=== PATIENT | female | born 1945 | race Caucasian/White ===

== ENCOUNTER 2018-01-10 10:43 | Outpatient (CLI) | payer OTHER | END 2018-01-10 14:10 | disposition home or self-care (01) | LOC: SONOGRAMA 10:43 → MAMO-SONO 10:45 → SONOGRAMA 14:10 | DX: R10.30 Lower abdominal pain, unspecified (principal) ==

== ENCOUNTER 2018-01-18 07:32 | Outpatient (CLI) | payer OTHER | END 2018-01-18 15:00 | disposition home or self-care (01) | LOC: TOM 07:32 | DX: K57.30 Diverticulosis of large intestine without perforation or abscess without bleeding (principal); R10.32 Left lower quadrant pain | CPT/HCPCS: 74177; Q9965 ==

== ENCOUNTER 2019-04-24 09:10 | Outpatient (CLI) | payer OTHER | END 2019-04-24 09:11 | disposition home or self-care (01) | LOC: MAMO-SONO 09:10 | DX: Z12.31 Encounter for screening mammogram for malignant neoplasm of breast (principal); Z87.898 Personal history of other specified conditions; N64.4 Mastodynia ==

== ENCOUNTER 2021-02-22 11:12 | Outpatient (CLI) | payer OTHER | END 2021-02-26 15:07 | disposition home or self-care (01) | LOC: RAD 11:12 | PROVIDERS: ATTEND General Practice | DX: M25.552 Pain in left hip (principal); M81.0 Age-related osteoporosis without current pathological fracture ==

== ENCOUNTER 2021-05-11 13:07 | Outpatient (CLI) | payer OTHER | END 2021-05-11 13:12 | disposition home or self-care (01) | LOC: MAMO-SONO 13:07 | PROVIDERS: ATTEND General Practice | DX: N64.4 Mastodynia (principal); Z12.31 Encounter for screening mammogram for malignant neoplasm of breast ==

== ENCOUNTER 2023-10-26 09:59 | Outpatient (CLI) | payer OTHER | END 2023-10-26 10:08 | disposition home or self-care (01) | LOC: MAMO-SONO 09:59 | PROVIDERS: ATTEND Obstetrics & Gynecology | DX: N60.11 Diffuse cystic mastopathy of right breast (principal); N60.12 Diffuse cystic mastopathy of left breast ==

== ENCOUNTER 2023-10-31 06:58 | Outpatient (CLI) | payer OTHER | END 2023-10-31 07:30 | disposition home or self-care (01) | LOC: MRI 06:58 | PROVIDERS: ATTEND Obstetrics & Gynecology | DX: N95.9 Unspecified menopausal and perimenopausal disorder (principal); R10.2 Pelvic and perineal pain | CPT/HCPCS: 72197; 74183; Q9965 ==

== ENCOUNTER 2023-11-02 08:08 | Emergency (ER) | payer OTHER ==
[~2023-11-02] VITALS: Ht 162.6 cm; Wt 83.9 kg
[2023-11-02] MEDS ORDERED: GLUMETZA500 MG (08:19)
[2023-11-02] MEDS ORDERED: EZALLOR SPRINKLE5 MG PO (08:19)
[2023-11-02] MEDS ORDERED: COZAAR25 MG PO (08:20)
[2023-11-02] MEDS ORDERED: DEXAMETHASONE SODIUM PHOSPHATE 4 MG/ML VIAL IM STA (08:53)
[2023-11-02] MEDS ORDERED: KETOROLAC TROMETHAMINE 30 MG VIAL IM ONE (09:00)
[2023-11-02] MEDS ORDERED: ADVIL DUAL ACT1 EACH PO (11:52)
[2023-11-02] MEDS ORDERED: CYCLOBENZAPRINE10 MG PO (11:52)
== END 2023-11-02 12:00 | disposition home or self-care (01) ==
LOC: ER 08:08
DX: M54.30 Sciatica, unspecified side (principal); M54.50 Low back pain, unspecified; M79.605 Pain in left leg; I10 Essential (primary) hypertension; E11.9 Type 2 diabetes mellitus without complications; Z79.84 Long term (current) use of oral hypoglycemic drugs; Z91.018 Allergy to other foods
CPT/HCPCS: 96372; 99282; J1100; J1885

== ENCOUNTER 2023-11-15 09:06 | Outpatient (CLI) | payer OTHER ==
[~2023-11-15 09:06] MED LIST: ADVIL DUAL ACT1 EACH PO; COZAAR25 MG PO; CYCLOBENZAPRINE10 MG PO; EZALLOR SPRINKLE5 MG PO; GLUMETZA500 MG
== END 2023-11-15 09:12 | disposition home or self-care (01) ==
LOC: RAD 09:06
PROVIDERS: ATTEND Family Medicine
DX: M25.559 Pain in unspecified hip (principal)

== ENCOUNTER 2024-02-22 08:15 | Inpatient (IN) | payer OTHER ==
[~2024-02-22] VITALS: Ht 162.6 cm; Wt 81.6 kg
[~2024-02-22 08:15] MED LIST changes: +MORGIDOX100 MG PO; +NAPR500T14 PO; +VITAMIN C60 MG PO
[2024-02-22 09:57] LABS: HEMATOCRIT 34.5 % (36.0-45.00); HEMOGLOBIN 11.5 g/dL (12.0-15.00); MEAN CELL VOLUME 85.1 fL (80.00-100.00); MEAN CORPUSCULAR HEMOGLOBIN 28.4 pg (27.00-32.0); MEAN CORPUSCULAR HGB CONC 33.4 g/dl (32.0-36.0); PLATELET COUNT 280 K/uL (150-450); RED BLOOD COUNT 4.06 M/uL (4.00-6.00); RED CELL DISTRIBUTION WIDTH 14.4 % (11.5-14.5)
[2024-02-22 10:02] LABS: URINE APPEARANCE Clear; URINE BILIRRUBIN Negative (NEGATIVE); URINE BLOOD Negative; URINE COLOR Yellow; URINE GLUCOSE Negative (NEGATIVE); URINE LEUKOCYTE Trace; URINE NITRATE Negative; URINE PROTEIN Trace (NEGATIVE); URINE UROBILINOGEN 0.2 E.U./dl
[2024-02-22 10:08] LABS: URINE BACTERIA 11.3 uL (0.0-1933); URINE EPITHELIAL CELLS 2.1 uL (0.0-38.8); URINE RBC 34.3 uL (0.0-20.8); URINE WBC 22.3 uL (0.0-23.2)
[2024-02-22 10:29] LABS: INR 0.98; PARTIAL THROMBOPLASTIN TIME 25.8 SECONDS (22.0-34.0); PROTHROMBIN TIME 10.3 SECONDS (9.0-11.5)
[2024-02-22] MEDS ORDERED: ACID REDUCER20 M1 PO (10:32)
[2024-02-22] MEDS ORDERED: ALTOPREV40 MG PO (10:32)
[2024-02-22 10:58] LABS: ALBUMIN 3.7 gm/dL (3.4-5.0); BILIRUBIN TOTAL 0.57 mg/dL (0.3-1.2); CALCIUM 9.7 mg/dL (8.5-10.1); CREATININE SERUM 0.94 mg/dL (0.55-1.02); GFR 57.59; GLOBULINA 2.9 G/DL (2.4-3.5); POTASSIUM 4.25 mEq/L (3.5-5.1); TOTAL PROTEIN 6.6 gm/dL (6.4-8.2); TSH 1.32 uIU/mL (0.358-3.74)
[2024-02-29] MEDS ORDERED: POVIDONE-IODINE 118 ML BOTT TOP ONE (07:07)
[2024-02-29] MEDS ORDERED: CEFOXITIN SODIUM 2,000 MG VIAL IV ONE (07:07)
[2024-02-29] MEDS ORDERED: BACLOFEN20 MG (08:07)
[2024-02-29] MEDS ORDERED: ROSUVASTATIN CA10 MG (08:08)
[2024-02-29] MEDS ORDERED: OMEPRAZOLE20 MG (08:08)
[2024-02-29] MEDS ORDERED: FAMOTIDINE20 MG (08:08)
[2024-02-29] MEDS ORDERED: OMEGA-3 ACID ETH1 GM (08:08)
[2024-02-29] MEDS ORDERED: IBUPROFEN800 MG (08:08)
[2024-02-29] MEDS ORDERED: ALTOPREV40 MG (08:11)
[2024-02-29] MEDS ORDERED: THROMBIN,HU/FIBRINOGEN/CALCIUM 10 ML SYRINGE TOP ONE (09:19)
[2024-02-29] MEDS ORDERED: SIMETHICONE 125 MG CAPSULE PO SCH (10:06)
[2024-02-29] MEDS ORDERED: SUGAMMADEX SODIUM 200 MG/2 ML VIAL IV ONE (10:15)
[2024-02-29] MEDS ORDERED: RINGERS SOLUTION,LACTATED 1,000 ML IV SCH (10:15)
[2024-02-29] MEDS ORDERED: PROMETHAZINE HCL 50 MG/ML AMPUL IV SCH (12:00)
[2024-02-29] MEDS ORDERED: MEPERIDINE HCL/PF 50 MG/ML VIAL IV SCH (12:00)
[2024-02-29 14:52] LABS: HEMATOCRIT 35.6 % (36.0-45.00); HEMOGLOBIN 12.1 g/dL (12.0-15.00); MEAN CELL VOLUME 84.5 fL (80.00-100.00); MEAN CORPUSCULAR HEMOGLOBIN 28.6 pg (27.00-32.0); MEAN CORPUSCULAR HGB CONC 33.9 g/dl (32.0-36.0); PLATELET COUNT 249 K/uL (150-450); RED BLOOD COUNT 4.22 M/uL (4.00-6.00)
[2024-03-01] MEDS ORDERED: ACETAMINOPHEN WITH CODEINE 1 UDTAB TABLET PO PRN (08:45)
[2024-03-01] MEDS ORDERED: NAPROXEN 500 MG TABLET PO SCH (09:00)
== END 2024-03-03 14:46 | disposition home or self-care (01) | DRG 741 ==
LOC: O/R 02-29 05:08 → SURH 02-29 08:15 → OB/GYN 02-29 13:03
PROVIDERS: Obstetrics & Gynecology Gynecologic Oncology; ADMIT Obstetrics & Gynecology; ATTEND Obstetrics & Gynecology
PROC: 0UT20ZZ Resection of Bilateral Ovaries, Open Approach (ICD-10-PCS; 2024-02-29)
PROC: 07BC0ZZ Excision of Pelvis Lymphatic, Open Approach (ICD-10-PCS; 2024-02-29)
PROC: 0TJB8ZZ Inspection of Bladder, Via Natural or Artificial Opening Endoscopic (ICD-10-PCS; 2024-02-29)
PROC: 0UT90ZZ Resection of Uterus, Open Approach (ICD-10-PCS; principal; 2024-02-29 12:15)
PROC: 0UT70ZZ Resection of Bilateral Fallopian Tubes, Open Approach (ICD-10-PCS; 2024-02-29 12:15)
DX: C54.1 Malignant neoplasm of endometrium (principal); N84.0 Polyp of corpus uteri; N93.9 Abnormal uterine and vaginal bleeding, unspecified; Z20.822 Contact with and (suspected) exposure to COVID-19; D25.0 Submucous leiomyoma of uterus

== ENCOUNTER → 2024-03-29 07:43 | Outpatient (CLI) | payer OTHER ==
[~2024-03-29 07:43] MED LIST changes: +ACID REDUCER20 M1 PO; +ALTOPREV40 MG; +ALTOPREV40 MG PO; +BACLOFEN20 MG; +FAMOTIDINE20 MG; +IBUPROFEN800 MG; +OMEGA-3 ACID ETH1 GM; +OMEPRAZOLE20 MG; +ROSUVASTATIN CA10 MG
== END | disposition home or self-care (01) ==
LOC: NUCLEAR 03-27 08:00
PROVIDERS: ATTEND Obstetrics & Gynecology
DX: C54.1 Malignant neoplasm of endometrium (principal)
CPT/HCPCS: 78815; A9552

== ENCOUNTER 2024-09-02 07:58 | Outpatient (CLI) | payer OTHER | END 2024-09-02 08:11 | disposition home or self-care (01) | LOC: TOM 07:58 | PROVIDERS: ATTEND Internal Medicine Hematology & Oncology | DX: C54.1 Malignant neoplasm of endometrium (principal) | CPT/HCPCS: 74178; Q9965 ==

== ENCOUNTER → 2024-09-02 09:12 | Outpatient (CLI) | payer OTHER ==
[2024-09-02 09:59] LABS: CREATININE SERUM 0.83 mg/dL (0.55-1.02)
== END | disposition home or self-care (01) ==
LOC: LAB 09:12
PROVIDERS: ATTEND Radiology Diagnostic Radiology
DX: C54.1 Malignant neoplasm of endometrium (principal)

== ENCOUNTER 2025-01-16 07:37 | Outpatient (CLI) | payer OTHER | END 2025-01-16 07:46 | disposition home or self-care (01) | LOC: MRI 07:37 | DX: C54.1 Malignant neoplasm of endometrium (principal) | CPT/HCPCS: 72196; Q9965 ==

== ENCOUNTER 2025-01-23 07:42 | Outpatient (CLI) | payer OTHER | END 2025-01-23 07:43 | disposition home or self-care (01) | LOC: NUCLEAR 07:42 | PROVIDERS: ATTEND Internal Medicine Hematology & Oncology | DX: C54.1 Malignant neoplasm of endometrium (principal) | CPT/HCPCS: 78815; A9552 ==